=== PATIENT | female | born 2000 | race Caucasian/White ===

== ENCOUNTER 2022-01-26 19:29 | Emergency (ER) | payer OTHER ==
[~2022-01-26] VITALS: Ht 165.1 cm; Wt 79.5 kg
[2022-01-26 20:38] LABS: RSV AMPLIFICATION NEGATIVE (NEGATIVE)
[2022-01-26] MEDS ORDERED: PSEUDOEPHEDRINE 30 MG TAB PO STA (21:26)
[2022-01-26] MEDS ORDERED: BENZ200C70 PO (21:29)
[2022-01-26] MEDS ORDERED: PSEU120T19 PO (21:29)
[2022-01-26] MEDS ORDERED: LIDO2SOL17 PO (21:29)
[2022-01-26] MEDS ORDERED: NAPR-837 PO (21:29)
[2022-01-26] MEDS ORDERED: LIDOCAINE VISCOUS 2% SOLN 15ML UDC SS ONE (21:30)
[2022-01-26] MEDS ORDERED: NAPROXEN 250 MG TAB PO ONE (21:30)
[2022-01-26] MEDS ORDERED: BENZONATATE 100MG CAPSULE PO ONE (21:30)
[2022-01-26 21:36] VITALS: BP 133/85
== END 2022-01-26 21:42 | disposition home or self-care (01) ==
LOC: M ED 19:29
DX: J06.9 Acute upper respiratory infection, unspecified (principal); J02.9 Acute pharyngitis, unspecified

== ENCOUNTER 2024-03-28 06:16 | Emergency (ER) | payer OTHER, SELFPAY ==
[~2024-03-28] VITALS: Ht 165.1 cm; Wt 87.5 kg
[~2024-03-28 06:16] MED LIST: BENZ200C70 PO; LIDO15SO8 PO; NAPR-837 PO; PSEU120T19 PO
[2024-03-28 07:20] LABS: BASO % 0.3 % (0.0-1.0); EOS # 0.3 10^3/uL (0.0-0.5); EOS % 1.9 % (0.0-3.0); HEMATOCRIT 41.6 % (36.0-47.0); HEMOGLOBIN 14.4 g/dl (12.0-15.5); LYMPH # 1.7 10^3/uL (1.5-5.0); LYMPH % 12.4 % (24.0-44.0); MEAN CORPUSCULAR HEMOGLOBIN 29.9 pg (27.0-33.0); MEAN CORPUSCULAR HGB CONC 34.6 g/dl (32.0-36.5); MEAN CORPUSCULAR VOLUME 86.5 fl (80.0-96.0); MONO # 1.2 10^3/uL (0.0-0.8); MONO % 8.7 % (2.0-8.0); NEUTROPHILS # 10.2 10^3/uL (1.5-8.5); NEUTROPHILS % 76.3 % (36.0-66.0); PLATELET COUNT, AUTOMATED 368 10^3/uL (150-450); RED BLOOD COUNT 4.81 10^6/uL (4.00-5.40); WHITE BLOOD COUNT 13.3 10^3/uL (4.0-10.0)
[2024-03-28 07:52] LABS: ALKALINE PHOSPHATASE 75 U/L (35-104); ALT/SGPT 13 U/L (7.0-40); AST/SGOT 9 U/L (<34); BILIRUBIN,DIRECT 0.2 MG/DL (<0.4); BILIRUBIN,TOTAL 0.6 MG/DL (0.3-1.2); BLOOD UREA NITROGEN 10 MG/DL (9-23); CALCIUM LEVEL 9.7 MG/DL (8.5-10.1); CARBON DIOXIDE LEVEL 25 MMOL/L (20-31); CHLORIDE LEVEL 107 MMOL/L (98-107); CREATININE FOR GFR 0.72 MG/DL (0.55-1.30); GLOMERULAR FILTRATION RATE > 60.0 (>60); GLUCOSE, FASTING 94 MG/DL (60-100); POTASSIUM SERUM 4.2 MMOL/L (3.5-5.1); SODIUM LEVEL 139 MMOL/L (136-145)
[2024-03-28 07:54] LABS: FREE T4 1.07 NG/DL (0.89-1.76); THYROID STIMULATING HORMONE 1.494 uIU/ML (0.55-4.78)
[2024-03-28 08:32] LABS: HCG, SERUM QUALITATIVE NEGATIVE (NEGATIVE)
[2024-03-28 09:02] VITALS: BP 125/74; TEMP 98; O2SAT 98
[2024-03-28] MEDS ORDERED: ONDA-282 PO (09:17)
== END 2024-03-28 09:27 | disposition home or self-care (01) ==
LOC: M ED 06:16
DX: R11.2 Nausea with vomiting, unspecified (principal); R19.7 Diarrhea, unspecified; Z79.83 Long term (current) use of bisphosphonates